=== PATIENT | male | born 1975 | race Caucasian/White ===

== ENCOUNTER 2020-06-25 11:27 | Emergency (ER) | payer OTHER ==
[~2020-06-25] VITALS: Ht 167.6 cm; Wt 104.3 kg
[2020-06-25 11:34] VITALS: BP 149/84; Ht 167.6 cm; Wt 104.3 kg
== END 2020-06-25 11:53 ==
LOC: ED 11:27
DX: Z02.89 Encounter for other administrative examinations (principal)